=== PATIENT | female | born 1995 | race Two or more races ===

== ENCOUNTER 2020-04-10 15:37 | Inpatient (IN) | payer OTHER ==
[2020-04-10] MEDS ORDERED: FAMOTIDINE 20 MG/2 ML VIAL IV STA (16:08)
[2020-04-10] MEDS ORDERED: SODIUM CHLORIDE 0.9% 1,000 ML IV STA (16:08)
[2020-04-10] MEDS ORDERED: KETOROLAC 30 MG/ML 1 ML VIAL IVP STA (16:08)
[2020-04-10] MEDS ORDERED: ONDANSETRON 4 MG/2 ML VIAL IVP STA (16:08)
--- NOTE | 2020-04-10 16:10 | ED ---
Abdominal Pain HPI - General Chief Complaint: Abdominal Pain Stated Complaint: abdominal pain/vomiting Time Seen by Provider: 04/10/20 16:01 Source: patient Mode of arrival: ambulatory Limitations: no limitations - History of Present Illness Initial Comments: 25-year-old female patient presents to the emergency department today for evaluation of upper abdominal pain and vomiting. Patient states she is having pain in the upper abdomen since around 3:00 this morning. States she has had 2 episodes of vomiting with it and has been nauseated. States she is unable to keep down any food or fluids. Denies any pain radiation to her shoulders or back. Denies fever or chills. Denies any constipation or diarrhea. Denies abnormal vaginal bleeding or discharge. She denies any chance of . States that she has been having abdominal pain whenever she eats pizza, states she did have pizza for dinner last night. Patient denies any recent rash, cough, shortness of breath, chest pain, back pain, numbness, tingling, dizziness, weakness, hematuria, dysuria, urinary urgency, urinary frequency, headache, visual changes, or any other complaints. - Related Data Allergies Allergy/AdvReac Type Severity Reaction Status Date / Time No Known Allergies Allergy Verified 04/10/20 15:56 Review of Systems ROS Statement: Those systems with pertinent positive or pertinent negative responses have been documented in the HPI. ROS Other: All systems not noted in ROS Statement are negative. Past Medical History Past Medical History: No Reported History History of Any Multi-Drug Resistant Organisms: None Reported Past Surgical History: No Surgical Hx Reported Past Psychological History: Anxiety, Depression Smoking Status: Never smoker Past Alcohol Use History: None Reported Past Drug Use History: None Reported General Exam Limitations: no limitations General appearance: alert, in no apparent distress, other (this is a well- developed, well-nourished adult female patient in no acute distress. ) Eye exam: Present: normal appearance, PERRL, EOMI. Absent: scleral icterus, conjunctival injection, periorbital swelling ENT exam: Present: normal exam, normal oropharynx, mucous membranes moist Respiratory exam: Present: normal lung sounds bilaterally. Absent: respiratory distress, wheezes, rales, rhonchi, stridor Cardiovascular Exam: Present: regular rate, normal rhythm, normal heart sounds. Absent: systolic murmur, diastolic murmur, rubs, gallop, clicks GI/Abdominal exam: Present: soft, tenderness (upper abdominal tenderness), normal bowel sounds. Absent: distended, guarding, rebound, rigid Neurological exam: Present: alert, oriented X3, CN II-XII intact Psychiatric exam: Present: normal affect, normal mood Skin exam: Present: warm, dry, intact, normal color. Absent: rash Course Vital Signs 04/10/20 04/10/20 04/10/20 15:57 15:59 16:59 Temperature 99 F Pulse Rate 103 H Respiratory 18 18 18 Rate Blood Pressure 127/80 O2 Sat by Pulse 99 Oximetry 04/10/20 17:59 Temperature Pulse Rate Respiratory 18 Rate Blood Pressure O2 Sat by Pulse Oximetry Medical Decision Making - Medical Decision Making 25-year-old female patient presents to the emergency department today for evaluation of upper abdominal pain, nausea, and vomiting. Physical examination did reveal upper abdominal tenderness including midepigastric right upper quadrant. There is positive Waller's sign. Labs reviewed and did reveal elevated white blood cell count at 16.5, mildly elevated AST of 42. Her bilirubin is normal at 0.9. Alk phos is negative. ultrasound was obtained and did show evidence for gallbladder wall thickening, hydropic gallbladder at 11.5 cm. There is also 1.5 cm stone in the gallbladder neck. Patient was given IV fluids, pain medication. Upon reevaluation she is resting comfortably in bed. I did discuss the case with on-call surgeon Dr. Ruffin who agrees to admission for acute cholecystitis. We will start IV antibiotics and continue IV fluids. Patient and family are agreeable this plan. - Lab Data Result diagrams: 04/10/20 16:55 04/10/20 16:55 Lab Results 04/10/20 04/10/20 04/10/20 Range/Units 16:55 16:55 18:03 WBC 16.4 H (3.8-10.6) k/uL RBC 5.51 H (3.80-5.40) m/uL Hgb 13.4 (11.4-16.0) gm/dL Hct 41.1 (34.0-46.0) % MCV 74.5 L (80.0-100.0) fL MCH 24.3 L (25.0-35.0) pg MCHC 32.6 (31.0-37.0) g/dL RDW 13.5 (11.5-15.5) % Plt Count 427 (150-450) k/uL Neutrophils % 92 % Lymphocytes % 5 % Monocytes % 2 % Eosinophils % 1 % Basophils % 0 % Neutrophils # 15.2 H (1.3-7.7) k/uL Lymphocytes # 0.7 L (1.0-4.8) k/uL Monocytes # 0.3 (0-1.0) k/uL Eosinophils # 0.1 (0-0.7) k/uL Basophils # 0.0 (0-0.2) k/uL Microcytosis Slight Sodium 135 L (137-145) mmol/L Potassium 4.7 (3.5-5.1) mmol/L Chloride 99 (98-107) mmol/L Carbon Dioxide 19 L (22-30) mmol/L Anion Gap 17 mmol/L BUN 6 L (7-17) mg/dL Creatinine 0.42 L (0.52-1.04) mg/dL Est GFR (CKD-EPI)AfAm >90 (>60 ml/min/1.73 sqM) Est GFR (CKD-EPI)NonAf >90 (>60 ml/min/1.73 sqM) Glucose 124 H (74-99) mg/dL Calcium 10.1 (8.4-10.2) mg/dL Total Bilirubin 0.9 (0.2-1.3) mg/dL AST 42 H (14-36) U/L ALT 16 (4-34) U/L Alkaline Phosphatase 103 (38-126) U/L Total Protein 9.0 H (6.3-8.2) g/dL Albumin 5.2 H (3.5-5.0) g/dL Amylase 82 (30-110) U/L Lipase 103 (23-300) U/L Urine Color Light Yellow Urine Appearance Clear (Clear) Urine pH 5.5 (5.0-8.0) Ur Specific [place] 1.005 (1.001-1.035) Urine Protein Negative (Negative) Urine Glucose (UA) Negative (Negative) Urine Ketones 1+ H (Negative) Urine Blood Trace H (Negative) Urine Nitrite Negative (Negative) Urine Bilirubin Negative (Negative) Urine Urobilinogen <2.0 (<2.0) mg/dL Ur Leukocyte Esterase Negative (Negative) Urine RBC 1 (0-5) /hpf Urine WBC 1 (0-5) /hpf Ur Squamous Epith Cells 1 (0-4) /hpf Urine Bacteria Occasional H (None) /hpf Urine Mucus Rare H (None) /hpf - Radiology Data Radiology results: report reviewed Ultrasound of the abdomen is obtained. Report was reviewed in its entirety. Impression by Dr. Mirza shows distended gallbladder. Gallstone in the gallbladder neck. No dilated ducts. No focal liver defect. There was tenderness over the gallbladder during exam. Disposition Clinical Impression: Acute cholecystitis, Cholelithiasis Disposition: ADMITTED IP TO THIS [facility] Condition: Serious Referrals: Luis A Montgomery DO [Primary Care Provider] - 1-2 days Decision to Admit Reason: Admit from EC Decision Date: 04/10/20 Decision Time: 19:45
[2020-04-10 17:04] LABS: Basophils % (A) 0 %; Eosinophils # (A) 0.1 k/uL (0-0.7); Eosinophils % (A) 1 %; HCT 41.1 % (34.0-46.0); HGB 13.4 gm/dL (11.4-16.0); Lymphocytes # (A) 0.7 k/uL (1.0-4.8); Lymphocytes % (A) 5 %; MCH 24.3 pg (25.0-35.0); MCHC 32.6 g/dL (31.0-37.0); MCV 74.5 fL (80.0-100.0); Mean Platelet Volume 7.1; Microcytosis Slight; Monocytes # (A) 0.3 k/uL (0-1.0); Monocytes % (A) 2 %; Neutrophils # (A) 15.2 k/uL (1.3-7.7); Neutrophils % (A) 92 %; Platelet Count 427 k/uL (150-450); RBC 5.51 m/uL (3.80-5.40); RDW 13.5 % (11.5-15.5); WBC 16.4 k/uL (3.8-10.6)
[2020-04-10 17:14] LABS: ALT 16 U/L (4-34); AST 42 U/L (14-36); African American GFR (CKD) >90 (>60 ml/min/1.73 sqM); Albumin 5.2 g/dL (3.5-5.0); Alkaline Phosphatase 103 U/L (38-126); Amylase 82 U/L (30-110); Anion Gap 17 mmol/L; Blood Urea Nitrogen 6 mg/dL (7-17); Calcium 10.1 mg/dL (8.4-10.2); Carbon Dioxide 19 mmol/L (22-30); Chloride 99 mmol/L (98-107); Glucose 124 mg/dL (74-99); Non-African American GFR(CKD) >90 (>60 ml/min/1.73 sqM); Potassium 4.7 mmol/L (3.5-5.1); Sodium 135 mmol/L (137-145); Total Bilirubin 0.9 mg/dL (0.2-1.3)
--- NOTE | 2020-04-10 17:55 | US ---
EXAMINATION TYPE: US abdomen limited DATE OF EXAM: 04/10/2020 COMPARISON: NONE CLINICAL HISTORY: RUQ/Midepigastric pain. epigastric pain, nausea and vomiting EXAM MEASUREMENTS: Liver Length: 14.0 cm Gallbladder Wall: 0.4 cm CBD: 0.3 cm Right Kidney: 9.6 x 3.3 x 4.0 cm Pancreas: visualized portions appear wnl Liver: wnl Gallbladder: hydropic = 11.5cm, stone within neck = 1.5cm, GB wall slightly thickened Evidence for sonographic Waller's sign: yes CBD: visualized portion appears wnl Right Kidney: no evidence of hydronephrosis or mass IMPRESSION: Distended gallbladder. Gallstone in the gallbladder neck. No dilated ducts. No focal live r defect. There was tenderness over the gallbladder during the exam.
[2020-04-10 19:20] LABS: Appearance,Urine Clear (Clear); Bacteria,Urine Occasional /hpf; Bilirubin,Urine Negative (Negative); Blood,Urine Trace (Negative); Color,Urine Light Yellow; Glucose,Urine (UA) Negative (Negative); Ketones,Urine 1+ (Negative); Leukocyte Esterase,Urine Negative (Negative); Mucus,Urine Rare /hpf; Nitrite,Urine Negative (Negative); PH, Urine 5.5 (5.0-8.0); Protein,Urine Negative (Negative); RBC,Urine 1 /hpf (0-5); Specific Gravity,Urine 1.005 (1.001-1.035); Squamous Epithelial Cell,Urine 1 /hpf (0-4); Urobilinogen,Urine <2.0 mg/dL (<2.0); WBC,Urine 1 /hpf (0-5)
[2020-04-10] MEDS ORDERED: NALOXONE 0.4 MG/ML 1 ML VIAL IV PRN (19:42)
[2020-04-10] MEDS ORDERED: HYDROmorphone 0.5 MG/0.5 ML SYRINGE IVP PRN (19:42)
[2020-04-10] MEDS ORDERED: ONDANSETRON 4 MG/2 ML VIAL IVP PRN (19:42)
[2020-04-10] MEDS ORDERED: PIPERACILLIN-TAZOBACTAM 3.375 GM in SODIUM CHLORIDE 0.9% 100 ML IVPB STA (19:51)
[2020-04-10] MEDS: SODIUM CHLORIDE 0.9% 1,000 ML IV SCH (20:58)
[2020-04-10] MEDS ORDERED: SCOPOLAMINE 1.5MG/72HR PATCH TRANSDERM STA (22:04)
[2020-04-10] MEDS ORDERED: SODIUM CHLORIDE 0.9% 1,000 ML IV ONE (22:04)
[2020-04-10] MEDS: ACETAMINOPHEN TAB 325 MG TAB PO SCH (23:55)
[2020-04-10] MEDS: METOCLOPRAMIDE 5 MG/ML 2 ML VIAL IVP SCH (23:56)
[2020-04-11] MEDS: PIPERACILLIN-TAZOBACTAM 3.375 GM in SODIUM CHLORIDE 0.9% 100 ML IVPB SCH ×3 (00:55→16:17)
[2020-04-11] MEDS: ACETAMINOPHEN TAB 325 MG TAB PO SCH ×4 (06:12→18:07)
[2020-04-11] MEDS: METOCLOPRAMIDE 5 MG/ML 2 ML VIAL IVP SCH ×2 (06:14→11:38)
[2020-04-11 06:41] LABS: Basophils % (A) 0 %; Eosinophils # (A) 0.1 k/uL (0-0.7); Eosinophils % (A) 1 %; HCT 33.1 % (34.0-46.0); HGB 10.8 gm/dL (11.4-16.0); Lymphocytes # (A) 1.4 k/uL (1.0-4.8); Lymphocytes % (A) 13 %; MCH 24.4 pg (25.0-35.0); MCHC 32.7 g/dL (31.0-37.0); MCV 74.6 fL (80.0-100.0); Mean Platelet Volume 7.2; Microcytosis Slight; Monocytes # (A) 0.6 k/uL (0-1.0); Monocytes % (A) 5 %; Neutrophils # (A) 8.6 k/uL (1.3-7.7); Neutrophils % (A) 80 %; Platelet Count 346 k/uL (150-450); RBC 4.44 m/uL (3.80-5.40); RDW 14.2 % (11.5-15.5); WBC 10.9 k/uL (3.8-10.6)
[2020-04-11 06:54] LABS: ALT 11 U/L (4-34); AST 27 U/L (14-36); African American GFR (CKD) >90 (>60 ml/min/1.73 sqM); Albumin 3.3 g/dL (3.5-5.0); Alkaline Phosphatase 69 U/L (38-126); Anion Gap 7 mmol/L; Blood Urea Nitrogen 4 mg/dL (7-17); Calcium 7.9 mg/dL (8.4-10.2); Carbon Dioxide 21 mmol/L (22-30); Chloride 110 mmol/L (98-107); Glucose 112 mg/dL (74-99); Non-African American GFR(CKD) >90 (>60 ml/min/1.73 sqM); Potassium 3.7 mmol/L (3.5-5.1); Sodium 138 mmol/L (137-145); Total Protein 6.2 g/dL (6.3-8.2)
[2020-04-11] MEDS: PANTOPRAZOLE 40 MG/10 ML VIAL IVP SCH (08:02)
[2020-04-11] MEDS: SODIUM CHLORIDE 0.9% 1,000 ML IV SCH (11:30)
--- NOTE | 2020-04-11 13:15 | P.GSHP ---
History of Present Illness H&P Date: 04/11/20 CHIEF COMPLAINT: Acute cholecystitis HISTORY OF PRESENT ILLNESS: The patient is a 25 year old female who comes in after developing right upper quadrant abdominal pain over 1 day. Her mother is at bedside. This is her third attack following eating pizza. She reports right upper quadrant abdominal pain. She denies any radiation to the right upper back or shoulder. She presented with leukocytosis, white count over 16,000. Today white count still elevated. She has persistent right upper quadrant pain. She is tolerating liquid diet. PAST MEDICAL HISTORY: See list and reviewed PAST SURGICAL HISTORY: See list and reviewed MEDICATIONS: See list and reviewed ALLERGIES: See list and reviewed SOCIAL HISTORY: See list and reviewed FAMILY HISTORY: See list and reviewed REVIEW OF ORGAN SYSTEMS: CONSTITUTIONAL: No fevers or chills. EYES: Denies any trouble with vision. Wears glasses. HEENT: No difficulties with hearing. No nosebleeds. No difficulty swallowing. RESPIRATORY: Denies pneumonia. Denies any troubles with breathing or dyspnea on exertion. CARDIOVASCULAR: Denies any chest pain, palpitations, or recent heart attacks. GASTROINTESTINAL: Denies fatty food intolerance. Denies change in bowel habits and gas bloat. GENITOURINARY: Denies any blood in urine or increased urinary frequency. NEUROLOGICAL: Denies any numbness or tingling along the distal extremities. No seizure disorders or headaches. MUSCULOSKELETAL: Denies any back pain, stiffness or joint arthritis. SKIN: No current skin cancer. No rash. PSYCHIATRIC: Has depression. No suicidal thoughts. Has anxiety. ENDOCRINE: Denies current thyroid disorders. Denies any blood sugar glucose intolerance. HEME/LYMPHATIC: Denies any lumps and bumps around the neck. No recent deep venous thrombosis. ALLERGY/IMMUNOLOGY: No immunoglobulin therapy. No immune deficiencies. BREAST: Denies current breast lumps, pain or nipple discharge. PHYSICAL EXAM: VITALS: Reviewed CONSTITUTIONAL: Well developed and in no acute distress. EYES: Conjuctivae without sclera icterus. Pupils are equally round and reactive to light. Extraocular movements grossly intact. HEAD, EARS, NOSE, THROAT: Moist buccal mucosa. Head is atraumatic, normocephalic. Hears conversational speech. No nasal drainage. NECK: Supple. No JV distention. No thyroidomegaly. RESPIRATORY: Non-labored respirations and equal bilateral excursions. No gross wheezes. CARDIOVASCULAR: Regular rate and rhythm. Palpable 2+ radial pulses. ABDOMEN: Soft. Non-tender. Nondistended. LYMPH: No neck lymphadenopathy. No axillary lymphadenopathy. MUSCULOSKELETAL: Nail and fingers with good capillary refill. SKIN: Warm and well perfused with good skin turgor. NEUROLOGIC: Cranial nerves II through XII grossly intact. Sensation upper and extremities intact. No focal or lateralizing signs. PSYCH: Appropriate affect. Alert and oriented to person, place and time. Displays appropriate insight. CLINCAL LABS: Reviewed. WBC on admission 16.4., Today 10.9. AST down from 42- 27, normal IMAGING: Independently reviewed. Ultrasound of the gallbladder is consistent with gallstones with mildly thickened gallbladder wall. RADIOLOGY: Report reviewed with hydrops gallbladder including 1.5 cm gallstone. ASSESSMENT: 1. Acute cholecystitis with gallstones PLAN: 1. Recommend cholecystectomy for acute cholecystitis due to cystic duct obstruction. 2. Continue IV antibiotics. 3. Benefits and risks of surgery described including but not limited to bleeding, infection, injury to the biliary tree, laparoscopic surgery/robotic mar rgery reviewed. 4. All questions addressed. 5. Inpatient hospitalization due to acute cholecystitis with leukocytosis with hydrops Past Medical History Past Medical History: No Reported History History of Any Multi-Drug Resistant Organisms: None Reported Past Surgical History: No Surgical Hx Reported Past Anesthesia/Blood Transfusion Reactions: No Reported Reaction Additional Past Anesthesia/Blood Transfusion Reaction / Comment(s): No surgeries in hx Past Psychological History: Anxiety, Depression Smoking Status: Never smoker Past Alcohol Use History: None Reported Past Drug Use History: None Reported Medications and Allergies Home Medications Medication Instructions Recorded Confirmed Type Escitalopram [Lexapro] 10 mg PO DAILY 04/10/20 04/10/20 History Norgestimate-Ethinyl Estradiol 1 tab PO DAILY 04/10/20 04/10/20 History [Tri-Sprintec Tablet] Allergies Allergy/AdvReac Type Severity Reaction Status Date / Time No Known Allergies Allergy Verified 04/10/20 20:14 Surgical - Exam Vital Signs Temp Pulse Resp BP Pulse Ox 99 F 103 H 18 127/80 99 04/10/20 15:57 04/10/20 15:57 04/10/20 15:57 04/10/20 15:57 04/10/20 15:57 Results - Labs 04/11/20 06:04 04/11/20 06:04 Abnormal Lab Results - Last 24 Hours (Table) 04/10/20 04/10/20 04/10/20 Range/Units 16:55 16:55 18:03 WBC 16.4 H (3.8-10.6) k/uL RBC 5.51 H (3.80-5.40) m/uL Hgb (11.4-16.0) gm/dL Hct (34.0-46.0) % MCV 74.5 L (80.0-100.0) fL MCH 24.3 L (25.0-35.0) pg Neutrophils # 15.2 H (1.3-7.7) k/uL Lymphocytes # 0.7 L (1.0-4.8) k/uL Sodium 135 L (137-145) mmol/L Chloride (98-107) mmol/L Carbon Dioxide 19 L (22-30) mmol/L BUN 6 L (7-17) mg/dL Creatinine 0.42 L (0.52-1.04) mg/dL Glucose 124 H (74-99) mg/dL Calcium (8.4-10.2) mg/dL AST 42 H (14-36) U/L Total Protein 9.0 H (6.3-8.2) g/dL Albumin 5.2 H (3.5-5.0) g/dL Urine Ketones 1+ H (Negative) Urine Blood Trace H (Negative) Urine Bacteria Occasional H (None) /hpf Urine Mucus Rare H (None) /hpf 04/11/20 04/11/20 Range/Units 06:04 06:04 WBC 10.9 H (3.8-10.6) k/uL RBC (3.80-5.40) m/uL Hgb 10.8 L (11.4-16.0) gm/dL Hct 33.1 L (34.0-46.0) % MCV 74.6 L (80.0-100.0) fL MCH 24.4 L (25.0-35.0) pg Neutrophils # 8.6 H (1.3-7.7) k/uL Lymphocytes # (1.0-4.8) k/uL Sodium (137-145) mmol/L Chloride 110 H (98-107) mmol/L Carbon Dioxide 21 L (22-30) mmol/L BUN 4 L (7-17) mg/dL Creatinine (0.52-1.04) mg/dL Glucose 112 H (74-99) mg/dL Calcium 7.9 L (8.4-10.2) mg/dL AST (14-36) U/L Total Protein 6.2 L (6.3-8.2) g/dL Albumin 3.3 L (3.5-5.0) g/dL Urine Ketones (Negative) Urine Blood (Negative) Urine Bacteria (None) /hpf Urine Mucus (None) /hpf Diabetes panel 04/10/20 04/11/20 Range/Units 16:55 06:04 Sodium 135 L 138 (137-145) mmol/L Potassium 4.7 3.7 (3.5-5.1) mmol/L Chloride 99 110 H (98-107) mmol/L Carbon Dioxide 19 L 21 L (22-30) mmol/L BUN 6 L 4 L (7-17) mg/dL Creatinine 0.42 L 0.52 (0.52-1.04) mg/dL Glucose 124 H 112 H (74-99) mg/dL Calcium 10.1 7.9 L (8.4-10.2) mg/dL AST 42 H 27 (14-36) U/L ALT 16 11 (4-34) U/L Alkaline Phosphatase 103 69 (38-126) U/L Total Protein 9.0 H 6.2 L (6.3-8.2) g/dL Albumin 5.2 H 3.3 L (3.5-5.0) g/dL Calcium panel 04/10/20 04/11/20 Range/Units 16:55 06:04 Calcium 10.1 7.9 L (8.4-10.2) mg/dL Albumin 5.2 H 3.3 L (3.5-5.0) g/dL Pituitary panel 04/10/20 04/11/20 Range/Units 16:55 06:04 Sodium 135 L 138 (137-145) mmol/L Potassium 4.7 3.7 (3.5-5.1) mmol/L Chloride 99 110 H (98-107) mmol/L Carbon Dioxide 19 L 21 L (22-30) mmol/L BUN 6 L 4 L (7-17) mg/dL Creatinine 0.42 L 0.52 (0.52-1.04) mg/dL Glucose 124 H 112 H (74-99) mg/dL Calcium 10.1 7.9 L (8.4-10.2) mg/dL Adrenal panel 04/10/20 04/11/20 Range/Units 16:55 06:04 Sodium 135 L 138 (137-145) mmol/L Potassium 4.7 3.7 (3.5-5.1) mmol/L Chloride 99 110 H (98-107) mmol/L Carbon Dioxide 19 L 21 L (22-30) mmol/L BUN 6 L 4 L (7-17) mg/dL Creatinine 0.42 L 0.52 (0.52-1.04) mg/dL Glucose 124 H 112 H (74-99) mg/dL Calcium 10.1 7.9 L (8.4-10.2) mg/dL Total Bilirubin 0.9 1.0 (0.2-1.3) mg/dL AST 42 H 27 (14-36) U/L ALT 16 11 (4-34) U/L Alkaline Phosphatase 103 69 (38-126) U/L Total Protein 9.0 H 6.2 L (6.3-8.2) g/dL Albumin 5.2 H 3.3 L (3.5-5.0) g/dL Assessment and Plan (1) Depressive disorder Current Visit: Yes Status: Acute Code(s): F32.9 - MAJOR DEPRESSIVE DISORDER, SINGLE EPISODE, UNSPECIFIED SNOMED Code(s): 31569965 (2) Anxiety disorder Current Visit: Yes Status: Acute Code(s): F41.9 - ANXIETY DISORDER, UNSPECIFIED SNOMED Code(s): 181464995 (3) Acute cholecystitis Current Visit: Yes Status: Acute Code(s): K81.0 - ACUTE CHOLECYSTITIS SNOMED Code(s): 42443185 (4) Cholelithiasis Current Visit: Yes Status: Acute Code(s): K80.20 - CALCULUS OF GALLBLADDER W/O CHOLECYSTITIS W/O OBSTRUCTION SNOMED Code(s): 463909563
[2020-04-11] MEDS ORDERED: METOCLOPRAMIDE 5 MG/ML 2 ML VIAL IVP PRN (14:03)
[2020-04-11] MEDS: ESCITALOPRAM 10 MG TAB PO SCH (15:30)
[2020-04-11] MEDS: TRI SPRINTEC PO SCH (16:17)
[2020-04-11] MEDS: metroNIDAZOLE-NS PMX 500 MG in SALINE 1 100ML.BAG IVPB SCH (17:58)
[2020-04-11] MEDS: KETOROLAC 30 MG/ML 1 ML VIAL IVP SCH ×2 (17:59→23:59)
[2020-04-12] MEDS: metroNIDAZOLE-NS PMX 500 MG in SALINE 1 100ML.BAG IVPB SCH ×4 (00:01→23:10)
[2020-04-12] MEDS: SODIUM CHLORIDE 0.9% 1,000 ML IV SCH ×3 (00:02→17:02)
[2020-04-12] MEDS: PIPERACILLIN-TAZOBACTAM 3.375 GM in SODIUM CHLORIDE 0.9% 100 ML IVPB SCH ×3 (01:12→17:01)
[2020-04-12] MEDS: ACETAMINOPHEN TAB 325 MG TAB PO SCH ×5 (05:53→23:09)
[2020-04-12] MEDS: KETOROLAC 30 MG/ML 1 ML VIAL IVP SCH ×4 (05:55→23:09)
[2020-04-12 06:54] LABS: Basophils # (A) 0.1 k/uL (0-0.2); Basophils % (A) 1 %; Eosinophils # (A) 0.4 k/uL (0-0.7); Eosinophils % (A) 4 %; HCT 31.3 % (34.0-46.0); Lymphocytes # (A) 1.8 k/uL (1.0-4.8); Lymphocytes % (A) 20 %; MCH 24.4 pg (25.0-35.0); MCHC 32.1 g/dL (31.0-37.0); Mean Platelet Volume 7.6; Microcytosis Slight; Monocytes # (A) 0.5 k/uL (0-1.0); Monocytes % (A) 5 %; Neutrophils # (A) 6.2 k/uL (1.3-7.7); Neutrophils % (A) 69 %; Platelet Count 323 k/uL (150-450); RBC 4.12 m/uL (3.80-5.40); RDW 14.2 % (11.5-15.5)
[2020-04-12 07:12] LABS: ALT 10 U/L (4-34); AST 27 U/L (14-36); African American GFR (CKD) >90 (>60 ml/min/1.73 sqM); Alkaline Phosphatase 57 U/L (38-126); Anion Gap 6 mmol/L; Blood Urea Nitrogen 3 mg/dL (7-17); Calcium 7.7 mg/dL (8.4-10.2); Carbon Dioxide 21 mmol/L (22-30); Chloride 110 mmol/L (98-107); Glucose 80 mg/dL (74-99); Non-African American GFR(CKD) >90 (>60 ml/min/1.73 sqM); Potassium 3.6 mmol/L (3.5-5.1); Sodium 137 mmol/L (137-145); Total Bilirubin 0.7 mg/dL (0.2-1.3); Total Protein 5.6 g/dL (6.3-8.2)
[2020-04-12] MEDS ORDERED: HEPARIN SODIUM,PORCINE 5,000 UNIT/ML 1 ML VIAL SQ ONE (08:00)
[2020-04-12] MEDS: PANTOPRAZOLE 40 MG/10 ML VIAL IVP SCH (08:50)
[2020-04-12] MEDS: TRI SPRINTEC PO SCH (08:50)
[2020-04-12] MEDS: ESCITALOPRAM 10 MG TAB PO SCH (08:51)
[2020-04-12] MEDS ORDERED: ESCITALOPRAM 10 MG TAB PO SCH (09:00)
[2020-04-12] MEDS ORDERED: SCOPOLAMINE 1.5MG/72HR PATCH TRANSDERM SCH (09:00)
[2020-04-12] MEDS ORDERED: GABAPENTIN 300 MG CAP PO ONE (12:00)
[2020-04-12] MEDS ORDERED: INDOCYANINE GREEN 25 MG VIAL IV ONE ×3 (12:00→13:49)
[2020-04-12] MEDS ORDERED: IV FLUID CONTINUATION 1,000 ML IV ONE (12:28)
[2020-04-12] MEDS ORDERED: ONDANSETRON 4 MG/2 ML VIAL ONE (12:34)
[2020-04-12] MEDS ORDERED: ONDANSETRON 4 MG/2 ML VIAL IVP ONE (12:36)
[2020-04-12] MEDS ORDERED: ROCURONIUM BROMIDE 10 MG/ML 5 ML VIAL IV ONE (13:27)
[2020-04-12] MEDS ORDERED: WATER FOR INJECTION, STERILE 10 ML VIAL IV ONE (13:27)
[2020-04-12] MEDS ORDERED: SUCCINYLCHOLINE CHLORIDE 100 MG/5 ML SYR IV ONE (13:27)
[2020-04-12] MEDS ORDERED: GLYCOPYRROLATE 0.2 MG/ML 2 ML VIAL ONE (13:27)
[2020-04-12] MEDS ORDERED: PROPOFOL 10 MG/ML 20 ML VIAL IV ONE (13:27)
[2020-04-12] MEDS ORDERED: MIDAZOLAM 2 MG/2 ML VIAL ONE (13:27)
[2020-04-12] MEDS ORDERED: LIDOCAINE 1% INJ 10MG/ML (20 ML MDV) ONE (13:27)
[2020-04-12] MEDS ORDERED: fentaNYL (PF) 50 MCG/ML 2 ML AMP ONE (13:27)
[2020-04-12] MEDS ORDERED: NEOSTIGMINE 1 MG/ML 10 ML VIAL ONE (13:27)
[2020-04-12] MEDS ORDERED: SODIUM CHLORIDE 0.9% 50 ML with ceFAZolin 2,000 MG IV ONE ×2 (13:33)
[2020-04-12] MEDS ORDERED: LACTATED RINGERS 1,000 ML IV ONE (13:50)
[2020-04-12] MEDS ORDERED: LIDOCAINE 1%-EPI 1:100,000 20 ML VIAL SQ ONE (13:53)
[2020-04-12] MEDS ORDERED: ONDANSETRON 4 MG/2 ML VIAL IVP PRN (15:48)
--- NOTE | 2020-04-12 15:59 | P.OP ---
Date of Procedure: 04/12/20 Description of Procedure: SURGEON: JIHAN GOMEZ MD PREOPERATIVE DIAGNOSES: 1. Acute cholecystitis with sepsis 2. Symptomatic gallstones 3. Hydrops cholecystitis 4. Depressive disorder 5. Autism POSTOPERATIVE DIAGNOSES: 1. Acute cholecystitis with cystic duct obstruction due to gallstones 2. Symptomatic gallstones 3. Hydrops cholecystitis 4. Depressive disorder 5. Autism 6. Sepsis OPERATION: Robotic-assisted da Gricelda Xi laparoscopic cholecystectomy, multiport with FI REFLY ESTIMATED BLOOD LOSS: 50 mL. SPECIMENS REMOVED: Gallbladder. COMPLICATIONS: None. OPERATIVE FINDINGS: 1. Acute cholecystitis with hydrops and distended gallbladder 2. Indocyanine green drain confirms acute cholecystitis with lack of contrast in gallbladder 3. Common bile duct within normal limits, without dilation INDICATIONS: The patient is a 25 year-old female who presents with epigastric right upper quadrant pain, symptomatic gallstones, WBC over 16,000, tachycardia, and clinical features of acute cholecystitis with presentation of sepsis. Antibiotic management including pain management was prescribed to manage her cholecystitis. Surgical intervention with cholecystectomy was described. Robotic assisted laparoscopic approach was described. Benefits and risks of the procedure including but not limited to bleeding, infection, injury to the biliary tree was reviewed. Informed consent was obtained. DESCRIPTION OF PROCEDURE: Patient was brought to the operating room, placed in supine position. After general induction, the abdomen had been prepped and draped in standard sterile fashion. The robotic da Gricelda XI system was primed. After a timeout protocol was performed, the patient had been prepped and draped in standard sterile fashion. The patient was injected with indocyanine green. A 5 mm 0 degrees laparoscopic trocar entry was performed along the left upper quadrant. The abdomen insufflated to 15 mmHg pressure which was tolerated well. Diagnostic laparoscopy demonstrated no injury to bowel viscera or mesentery. The liver surface was unremarkable. A moderately distended gallbladder was identified adding complexity to the case. Next, two 8 mm robotic ports were placed along the right upper abdomen. The camera 8-mm port was maintained along the epigastrium. Another 8 mm port was placed along the left upper abdominal wall after exchanging the 5 mm port. Please note that the ports were placed at least 10 to 15 cm away from the target anatomy of the gallbladder. The robot was docked along the left lateral abdomen. The patient was repositioned in reverse Trendelenburg position with the right side up. Using a grasper for arm 3, a grasper for arm 4, including hook cautery for arm 1, the robotic system was docked and primed as described. Instruments were interchanged by the physician assistant certified including hook cautery, Bovie cautery and clip appliers. I had sat at the console. The gallbladder was reflected towards the dome of the liver. The gallbladder was moderately distended adding complexity to the case. Moderate edema was fo und along the cystic triangle including infundibulum. Initial dissection was performed on the gallbladder infundibulum using indocyanine green to illuminate the cystic duct and common bile duct. Due to moderate distention of the infundibulum, dome down technique was performed removing the gallbladder from the hepatic fossa starting from the fundus towards the infundibulum. Using a sponge, the liver was reflected towards the diaphragm and starting at the gallbladder fundus, hook cautery was used to find the avascular plane between the liver and the gallbladder. As the gallbladder was dissected from the hepatic fossa, hemostasis was checked using vessel sealer along the posterior gallbladder. Next, indocyanine green was used to confirm the common bile duct as well as cystic duct. The cystic duct was short and dissection was performed at the junction of the cystic duct and infundibulum. The entire gallbladder was without contrast consistent with acute cholecystitis. The infundibulum was retracted laterally to expose the cystic duct away from the common bile duct. The cystic duct was dissected free from its surrounding tissue. FIREFLY was used to identify the cystic structures. A critical view of safety was obtained. Large PLASTIC clips were used throughout the entire case. Using a clip chemistry department chair, a clip was placed at the junction of the infundibulum and cystic duct. The cystic duct was divided using vessel sealer. Next, the cystic artery was divided using vessel sealer. Electro-Bovie cautery and vessel sealer was used to remove the gallbladder without decompression. Hemostasis was checked and found to be adequate. The robot was undocked. I re-scrubbed into the case. A 10 mm Endo Catch bag was used to remove the gallbladder in total via the left upper quadrant incision after widening the incision. The specimen was removed from the abdominal cavity. Kai Sánchez and 0 Vicryl was used to close the fascial defect of the left upper quadrant. All pneumoperitoneum instruments were evacuated from the abdominal cavity. The incisions were cleansed using dilute hydrogen peroxide. The incisions were reapproximated using 4-0 Monocryl in an interrupted subcuticular fashion. Please note along the trocar sites, local anesthetic was placed as a field block prior to insertion of all instruments. Liquid glue was applied to the skin. At the end of the procedure needle, sponge, and instrument count had been verified correct by the certified surgical first assistant. The patient was transferred to postanesthesia care unit in stable condition. Intraoperative films were shared with the patient's family who were pleased with the level of care.
[2020-04-12] MEDS: HYDROmorphone 0.5 MG/0.5 ML SYRINGE IVP ONE ×2 (16:03→16:12)
[2020-04-13] MEDS: PIPERACILLIN-TAZOBACTAM 3.375 GM in SODIUM CHLORIDE 0.9% 100 ML IVPB SCH ×2 (00:13→09:13)
[2020-04-13] MEDS: KETOROLAC 30 MG/ML 1 ML VIAL IVP SCH ×2 (05:58→12:03)
[2020-04-13] MEDS: SODIUM CHLORIDE 0.9% 1,000 ML IV SCH ×2 (05:59→15:49)
[2020-04-13] MEDS: ACETAMINOPHEN TAB 325 MG TAB PO SCH ×2 (05:59→15:46)
[2020-04-13 07:06] LABS: Basophils % (A) 0 %; Eosinophils # (A) 0.2 k/uL (0-0.7); Eosinophils % (A) 2 %; HCT 30.5 % (34.0-46.0); HGB 9.7 gm/dL (11.4-16.0); Lymphocytes # (A) 1.6 k/uL (1.0-4.8); Lymphocytes % (A) 17 %; MCH 23.9 pg (25.0-35.0); MCHC 31.7 g/dL (31.0-37.0); MCV 75.3 fL (80.0-100.0); Mean Platelet Volume 7.2; Microcytosis Slight; Monocytes # (A) 0.6 k/uL (0-1.0); Monocytes % (A) 6 %; Neutrophils # (A) 7.1 k/uL (1.3-7.7); Neutrophils % (A) 74 %; Platelet Count 308 k/uL (150-450); RBC 4.05 m/uL (3.80-5.40); RDW 14.4 % (11.5-15.5); WBC 9.5 k/uL (3.8-10.6)
[2020-04-13 07:19] LABS: ALT 16 U/L (4-34); AST 45 U/L (14-36); African American GFR (CKD) >90 (>60 ml/min/1.73 sqM); Albumin 2.8 g/dL (3.5-5.0); Alkaline Phosphatase 54 U/L (38-126); Anion Gap 5 mmol/L; Blood Urea Nitrogen <2 mg/dL (7-17); Calcium 7.8 mg/dL (8.4-10.2); Carbon Dioxide 21 mmol/L (22-30); Chloride 109 mmol/L (98-107); Glucose 85 mg/dL (74-99); Magnesium 1.6 mg/dL (1.6-2.3); Non-African American GFR(CKD) >90 (>60 ml/min/1.73 sqM); Potassium 3.3 mmol/L (3.5-5.1); Sodium 135 mmol/L (137-145); Total Bilirubin 0.7 mg/dL (0.2-1.3); Total Protein 5.3 g/dL (6.3-8.2)
[2020-04-13 08:58] VITALS: TEMP 97.7
[2020-04-13] MEDS ORDERED: ENOXAPARIN 30 MG/0.3 ML SYRINGE SQ SCH (09:00)
[2020-04-13] MEDS: metroNIDAZOLE-NS PMX 500 MG in SALINE 1 100ML.BAG IVPB SCH (09:10)
[2020-04-13] MEDS: PANTOPRAZOLE 40 MG/10 ML VIAL IVP SCH (09:11)
[2020-04-13] MEDS: ESCITALOPRAM 10 MG TAB PO SCH (09:11)
[2020-04-13] MEDS: TRI SPRINTEC PO SCH (09:11)
[2020-04-13] MEDS: POTASSIUM CHLORIDE ER 20 MEQ TAB.ER PO STA ×2 (09:13→10:17)
[2020-04-13] MEDS ORDERED: POTASSIUM BICARBONATE/CIT AC 20 MEQ TABLET.EFF PO STA (09:34)
[2020-04-13 11:12] VITALS: BMI 23.0
[2020-04-13 12:48] VITALS: BP 105/62; PULSE 85; RESP 16
--- NOTE | 2020-04-13 13:29 | P.DS ---
<Marimar Bazan Adin - Last Filed: 04/13/20 13:28> Providers Expected date of discharge: 04/13/20 Hospital Course: 25-year-old female who underwent robotic-assisted laparoscopic cholecystectomy with Dr. Ruffin on 04/12/2020. Patient is doing well postoperatively without any immediate complications. She is tolerating diet without nausea or vomiting. Pain is controlled on oral medications. Vital signs are stable. She is stable for discharge home today. Please see EMR for further hospital course details. Discharge diagnosis 1. Acute cholecystitis with cystic duct obstruction due to gallstones 2. Symptomatic gallstones 3. Hydrops cholecystitis 4. Depressive disorder 5. Autism 6. Sepsis Nurse practitioner note has been reviewed by physician. Signing provider agrees with the documented findings, assessment, and plan of care. Patient Condition at Discharge: Stable Plan - Discharge Summary New Discharge Prescriptions: New Ibuprofen [Motrin] 600 mg PO Q8HR PRN #30 tab PRN Reason: Pain Acetaminophen Tab [Tylenol Tab] 650 mg PO Q4H PRN #30 tablet PRN Reason: Pain Continue Escitalopram [Lexapro] 10 mg PO DAILY Norgestimate-Ethinyl Estradiol [Tri-Sprintec Tablet] 1 tab PO DAILY Discharge Medication List Escitalopram [Lexapro] 10 mg PO DAILY 04/10/20 [History] Norgestimate-Ethinyl Estradiol [Tri-Sprintec Tablet] 1 tab PO DAILY 04/10/20 [History] Acetaminophen Tab [Tylenol Tab] 650 mg PO Q4H PRN #30 tablet 04/13/20 [Rx] Ibuprofen [Motrin] 600 mg PO Q8HR PRN #30 tab 04/13/20 [Rx] Follow up Appointment(s)/Referral(s): Celestina Ruffin MD [Family Provider] - 04/21/20 3:40 pm Luis A Montgomery DO [Primary Care Provider] - 04/14/20 10:00 am (Gerson Hernandez [employer] will see pt. Dr. Montgomery out of the office) Activity/Diet/Wound Care/Special Instructions: Low fat diet. follow vice president biostatistics and surgeon advice. No lifting pushing pulling over 10 pounds You may shower. No soaking in hot tubs or tub baths for swimming pools for 2 weeks. Use Abdominal binder for comfort. Very light activity until you are reevaluated at your follow up appointment with your surgeon. appointments have been made for you. Call physician with any questions comments concerns worsening returning symptoms, fever 101.1 or higher, not tolerating a diet or fluids, pain not controlled by prescribed medication. Discharge Disposition: HOME SELF-CARE <Celestina Ruffin - Last Filed: 04/15/20 00:01> Providers Date of admission: 04/12/20 08:47 Attending physician: Celestina Ruffin Consults: 04/12/20 08:00 Consult Physician Routine Consulting Provider: [facility] Consult Reason/Comments: [facility] Do you want consulting provider notified?: Yes Primary care physician: Luis A Montgomery - Discharge Diagnosis(es) (1) Depressive disorder Status: Acute (2) Anxiety disorder Status: Acute (3) Acute cholecystitis Status: Acute (4) Cholelithiasis Status: Acute (5) Autism Status: Acute Hospital Course: Patient seen and evaluated with above. Patient presented with acute cholecystitis. She reports moderate improvement of abdominal pain. Mother is at bedside. Patient and mother reports that she tolerated breakfast this morning. Overall, low-fat diet described during recovery. Limited activities including lifting restriction of 10 pounds reviewed. Patient to follow-up in the office within 1 week.
== END 2020-04-13 15:50 | disposition home or self-care (01) | DRG 854 ==
LOC: EC 15:37 → 1SOBS 20:23 → OBSVTOIN 04-12 08:47 → 6PED 04-12 20:30
PROVIDERS: ADMIT Surgery Plastic and Reconstructive Surgery; ATTEND Surgery Plastic and Reconstructive Surgery
PROC: 8E0W4CZ Robotic Assisted Procedure of Trunk Region, Percutaneous Endoscopic Approach (ICD-10-PCS; principal; 2020-04-12 07:30)
PROC: 0FT44ZZ Resection of Gallbladder, Percutaneous Endoscopic Approach (ICD-10-PCS; principal; 2020-04-12 07:30)
DX: A41.9 Sepsis, unspecified organism (principal); K82.1 Hydrops of gallbladder; K80.01 Calculus of gallbladder with acute cholecystitis with obstruction; F84.0 Autistic disorder; F41.9 Anxiety disorder, unspecified; F32.9 Major depressive disorder, single episode, unspecified; Z79.899 Other long term (current) drug therapy; Z11.59 Encounter for screening for other viral diseases
CPT/HCPCS: 36415; 76705; 80053; 81001; 81025; 82150; 83690; 83735; 85025; 88304; 96361; 96374; 96375; 99285